=== PATIENT | female | born 1950 | race Caucasian/White ===

== ENCOUNTER 2017-03-26 10:50 | Day surgery (SDC) | payer MEDICARE ==
[2017-03-26] MEDS ORDERED: Lactated Ringers 1,000 ML IV SCH (11:00)
[2017-03-26] MEDS ORDERED: fentaNYL 100 MCG/2 ML SDV ONE (12:08)
[2017-03-26] MEDS ORDERED: Propofol 200 MG/20 ML SDV ONE (12:08)
[2017-03-26] MEDS ORDERED: Midazolam 1 MG/ML 2 ML SDV ONE (12:08)
[2017-03-26] MEDS ORDERED: Ampicillin 2 GM in Sodium Chloride 0.9% 100 ML IV ONE (12:15)
[2017-03-26 13:52] VITALS: BP 134/100
--- NOTE | 2017-03-27 08:00 | OR ---
DATE OF PROCEDURE: 03/26/2017 PREOPERATIVE DIAGNOSIS: Colon cancer screening. POSTOPERATIVE DIAGNOSIS: Unremarkable colonoscopy. PROCEDURE: Colonoscopy to the cecum. ANESTHESIA: IV anesthesia with monitored anesthesia care. INDICATION: This 66-year-old white female was referred for a colonoscopy for colon cancer screening. She says her last colonoscopic exam was done about 10 years ago in [place], [place]. I counseled her for a colonoscopy with possible biopsy and/or polypectomy including risks and alternatives and she gave her informed consent to proceed. DESCRIPTION OF PROCEDURE: The patient was placed in the left lateral decubitus position. IV anesthesia was administered by the Anesthesia Service. Time-out was held. A rectal exam was performed, which was unremarkable. The flexible video Olympus colonoscope was introduced through her anus, up her rectum, and out her colon all the way to the cecum. Once the cecum was reached, the scope was slowly withdrawn examining the mucosa throughout. No mucosal abnormalities were noted. The scope was retroflexed in the rectum with the distal rectum appearing unremarkable. The scope was straightened and removed. She tolerated the procedure well. Jaime Jimenez MD /[id number]
== END 2017-03-26 14:05 | disposition home or self-care (01) ==
LOC: JP.SDS 10:50
PROVIDERS: ATTEND Surgery
DX: Z12.11 Encounter for screening for malignant neoplasm of colon (principal); K21.9 Gastro-esophageal reflux disease without esophagitis
CPT/HCPCS: G0121; J0290; J2250; J2704; J3010; J7030; J7120

== ENCOUNTER 2017-12-04 08:26 | Day surgery (SDC) | payer MEDICARE ==
[2017-12-04] MEDS ORDERED: Sodium Chloride 0.9% 1,000 ML IV SCH (09:00)
[2017-12-04] MEDS ORDERED: Midazolam 1 MG/ML 2 ML SDV ONE (10:07)
[2017-12-04] MEDS ORDERED: fentaNYL 100 MCG/2 ML SDV ONE (10:07)
[2017-12-04] MEDS ORDERED: Propofol 200 MG/20 ML SDV ONE (10:07)
[2017-12-04] MEDS ORDERED: ceFAZolin 2 GM in Premix Bag 1 BAG IV ONE (10:15)
[2017-12-04 11:31] VITALS: BP 159/85
--- NOTE | 2017-12-04 11:36 | OR ---
DATE OF PROCEDURE: 12/04/2017 PROCEDURE: EGD. FINDINGS: Very mild inflammation at the GE junction, consistent with reflux disease. PREOPERATIVE DIAGNOSIS: Epigastric pain/dysphagia. POSTOPERATIVE DIAGNOSIS: Epigastric pain/dysphagia. RISKS: Risks, benefits, alternatives, and limitations including, but not limited to infection, bleeding, and perforation were explained to the patient, who wished to proceed. PROCEDURE IN DETAIL: The patient was placed in left lateral decubitus position. Digital rectal exam was performed without abnormality. The scope was introduced and advanced atraumatically to the second part of the duodenum. The scope was brought back and retroflexed. No hiatal hernia. At the GE junction, there was very mild inflammation consistent with reflux disease. This was biopsied using cold biopsy forceps. The esophagus was normal. The patient had proximal esophageal dysphagia. This area was inspected twice, and there was no evidence of abnormality. The vocal cords were all functioning well. The patient tolerated the procedure well. Lawrence Gandhi MD /[id number]
== END 2017-12-04 11:33 | disposition home or self-care (01) ==
LOC: JP.SDS 08:26
PROVIDERS: ATTEND Surgery
DX: K29.50 Unspecified chronic gastritis without bleeding (principal); K21.0 Gastro-esophageal reflux disease with esophagitis; I10 Essential (primary) hypertension; F32.9 Major depressive disorder, single episode, unspecified
CPT/HCPCS: 43239; 88305; J0690; J2250; J2704; J3010; J7040; J7030

== ENCOUNTER 2020-07-03 21:23 | Emergency (ER) | payer MEDICARE ==
[2020-07-03 21:36] VITALS: BP 136/92; PULSE 109
[2020-07-03] MEDS ORDERED: Diphtheria,Pertussis(Acell),Tetanus Vaccine 0.5 ML SDV IM ONE (21:41)
[2020-07-03] MEDS ORDERED: Bacitracin Oint 1 GM U/D Packet TOP ONE (21:41)
[2020-07-03] MEDS ORDERED: Amoxicillin/Clavulanate K 875-125 MG Tab PO ONE (21:44)
--- NOTE | 2020-07-03 22:03 | EDM.PDOC ---
ED HPI GENERAL MEDICAL PROBLEM - General Chief Complaint: Laceration Stated Complaint: DOG BITE TO RT HAND Time Seen by Provider: 07/03/20 21:45 Source of Information: Reports: Patient, Old Records, RN History Limitations: Reports: No Limitations - History of Present Illness INITIAL COMMENTS - FREE TEXT/NARRATIVE: 69 yo female presents with a laceration to the R hand resulting from catching it on her dog's tooth. Last tetanus 6 yrs ago. No other injuries. Onset: Today, Sudden Onset Date: 07/03/20 Duration: Minutes: Location: Reports: Upper Extremity, Right Quality: Reports: Dull Severity: Mild Improves with: Reports: None Worsens with: Reports: None Context: Reports: Trauma Associated Symptoms: Reports: No Other Symptoms Treatments PICKER / PACKER: Reports: Other (see below) (none) Right Hand Pain Score (Numeric/FACES): 6 - Related Data Allergies Allergy/AdvReac Type Severity Reaction Status Date / Time No Known Allergies Allergy Verified 09/30/18 22:22 Home Meds: Home Meds hydrOXYzine pamoate [Hydroxyzine Pamoate] 1 - 2 tab PO QID PRN 10/24/17 [History] Cholecalciferol (Vitamin D3) [Vitamin D3] 4,000 units PO DAILY 12/02/17 [History] Albuterol [Ventolin HFA] 1 - 2 mg PO ASDIRECTED 09/30/18 [History] Past Medical History HEENT History: Reports: Impaired Vision Other HEENT History: glasses Cardiovascular History: Reports: High Cholesterol, SOB on Exertion, Syncope Respiratory History: Reports: Other (See Below) Other Respiratory History: chronic cough Gastrointestinal History: Reports: GERD Genitourinary History: Reports: None 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: Musculoskeletal History: Reports: Fibromyalgia, Other (See Below) Other Musculoskeletal History: POLYMYALGIA; bursitis Neurological History: Reports: None Psychiatric History: Reports: Depression Endocrine/Metabolic History: Reports: None Hematologic History: Reports: None Immunologic History: Reports: None Oncologic (Cancer) History: Reports: Basal Cell Carcinoma Dermatologic History: Reports: None - Infectious Disease History Infectious Disease History: Reports: Chicken Pox - Past Surgical History Head Surgeries/Procedures: Reports: None HEENT Surgical History: Reports: None Cardiovascular Surgical History: Reports: None Respiratory Surgical History: Reports: None Oncologic Surgical History: Reports: Other (See Below) Other Oncologic Surgeries/Procedures: RIGHT UNDER ARM Social & Family History - Family History Family Medical History: Noncontributory Oncologic: Reports: Breast, Lymphoma, Prostate - Tobacco Use Smoking Status *Q: Never Smoker - Caffeine Use Caffeine Use: Reports: Coffee - Recreational Drug Use Recreational Drug Use: No ED ROS GENERAL - Review of Systems Review Of Systems: See Below Constitutional: Reports: No Symptoms Musculoskeletal: Reports: No Symptoms Skin: Reports: Wound (R hand lac) Neurological: Reports: No Symptoms ED EXAM, SKIN/RASH Exam: See Below Exam Limited By: No Limitations General Appearance: Alert, WD/WN, No Apparent Distress Extremities: Other (laceration of R hand, ulnar side) Neurological: Alert, Oriented, CN II-XII Intact, Normal Cognition, No Motor/Sensory Deficits Psychiatric: Normal Affect, Normal Mood Skin: Warm, Dry, Normal Color, No Rash, Wound/Incision (laceration ulnar aspect of R hand) Location, Skin: Upper Extremity, Right Characteristics: Linear Associated features: Tenderness. No: Warmth, Swelling, Induration, Lymphangitis, Inflammation ED SKIN PROCEDURES - Laceration/Wound Repair Right Lateral Hand Appearance: Subcutaneous, Linear Distal NVT: Neuro & Vascular Intact, No Tendon Injury Anesthetic Type: Local Local Anesthesia - Lidocaine (Xylocaine): 1% with EPI Local Anesthetic Volume: 3cc Skin Prep: Saline Saline Irrigation (cc's): 45 Exploration/Debridement/Repair: Wound Explored Closed with: Sutures Lac/Wound length In cm: 2.3 Suture Type: Prolene, Interrupted, Simple Suture Size: 5-0 # of Sutures: 5 Drain Placement: No Sterile Dressing Applied: Nurse Tetanus Status Addressed: Yes Complications: No Course - Vital Signs Last Recorded V/S: Last Vital Signs Temp 36.4 C 07/03/20 21:39 Pulse 109 H 07/03/20 21:39 Resp 16 07/03/20 21:39 BP 136/92 H 07/03/20 21:39 Pulse Ox 97 07/03/20 21:39 - Orders/Labs/Meds Orders: Active Orders 24 hr Category Date Time Status Vaccines to be Administered [RC] PER UNIT ROUTINE Care 07/03/20 21:41 Active Meds: Medications Discontinued Medications Generic Name Dose Route Start Last Admin Trade Name Freq PRN Reason Stop Dose Admin Amoxicillin/Clavulanate Potassium 1 tab 07/03/20 21:44 Augmentin 875 Mg/125 Mg PO 07/03/20 21:45 ONETIME ONE Bacitracin 1 dose 07/03/20 21:41 Bacitracin Oint 1 Gm TOP 07/03/20 21:42 ONETIME ONE Diphtheria/Tetanus/Acell Pertussis 0.5 ml 07/03/20 21:41 Adacel IM 07/03/20 21:42 .ONCE ONE Departure - Departure Time of Disposition: 22:10 Disposition: Home, Self-Care 01 Condition: Good Clinical Impression: Laceration of right hand Qualifiers: Encounter type: initial encounter Foreign body presence: without foreign body Qualified Code(s): S61.411A - Laceration without foreign body of right hand, initial encounter - Discharge Information *PRESCRIPTION DRUG MONITORING PROGRAM REVIEWED*: No *COPY OF PRESCRIPTION DRUG MONITORING REPORT IN PATIENT ITA: No Instructions: Laceration Care, Adult, [id number] Referrals: Wilda Martinez PA-C [Primary Care Provider] - Additional Instructions: Take Augmentin every 12 hrs until gone. Clean wound twice daily with soap and water, dry, and apply antibiotic ointment. Recheck for signs of infection. Acetaminophen for pain relief as needed. Keep wound clean for 3 days at least. Stitches out in 9-10 days. Sepsis Event Note (ED) - Evaluation Sepsis Screening Result: No Definite Risk - Focused Exam Vital Signs: Vital Signs Temp Pulse Resp BP Pulse Ox 07/03/20 21:39 36.4 C 109 H 16 136/92 H 97 07/03/20 21:34 36.4 C 109 H 16 136/92 H 97 - My Orders Last 24 Hours: My Active Orders 07/03/20 21:41 Vaccines to be Administered [RC] PER UNIT ROUTINE - Assessment/Plan Last 24 Hours: My Active Orders 07/03/20 21:41 Vaccines to be Administered [RC] PER UNIT ROUTINE
== END 2020-07-03 22:12 | disposition home or self-care (01) ==
LOC: JP.ED 21:23
DX: S61.411A Laceration without foreign body of right hand, initial encounter (principal); Z23 Encounter for immunization; W54.1XXA Struck by dog, initial encounter
CPT/HCPCS: 12001; 90471; 90715; 99282; A9270

== ENCOUNTER 2021-09-17 09:22 | Emergency (ER) | payer MEDICARE ==
[2021-09-17] MEDS ORDERED: Carvedilol 3.125 MG Tab PO ONE (10:16)
[2021-09-17 10:26] VITALS: PULSE 117
--- NOTE | 2021-09-17 10:26 | EDM.PDOC ---
ED HPI GENERAL MEDICAL PROBLEM - General Chief Complaint: Cardiovascular Problem Stated Complaint: CHEST PAIN/SNAPPED TENDON R FOOT Time Seen by Provider: 09/17/21 10:10 Source of Information: Reports: Patient, Provider, RN History Limitations: Reports: No Limitations - History of Present Illness INITIAL COMMENTS - FREE TEXT/NARRATIVE: 71 yo female s/p R achilles repair after rupture 11 d ago was sent to the ER today to R/O PE after she experienced chest pain and R calf pain transiently in the night last night. She has no sx's currently. Her chest pain resolved after she took some antacids. She has not had her Coreg yet today. With last night's chest pain she did not experience any SOB, nausea or diaphoresis. Onset: Sudden Onset Date: 09/17/21 Duration: Minutes: Location: Reports: Chest, Lower Extremity, Right Quality: Reports: Burning Severity: Mild Improves with: Reports: Medication (antacids) Worsens with: Reports: Other (unsure) Context: Reports: Other (See HPI) Associated Symptoms: Reports: No Other Symptoms. 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: Other Medication(s) (antacids last night) - Related Data Allergies Allergy/AdvReac Type Severity Reaction Status Date / Time No Known Allergies Allergy Verified 09/17/21 09:49 Home Meds: Home Meds hydrOXYzine pamoate [Hydroxyzine Pamoate] 1 - 2 tab PO QID PRN 10/24/17 [History] Cholecalciferol (Vitamin D3) [Vitamin D3] 4,000 units PO DAILY 12/02/17 [History] Albuterol [Ventolin HFA] 1 - 2 mg PO ASDIRECTED 09/30/18 [History] ALPRAZolam [Xanax] 0.25 mg PO TID PRN 08/09/21 [History] ARIPiprazole [Abilify] 5 mg PO DAILY 08/09/21 [History] Cyanocobalamin (Vitamin B-12) [Cyanocobalamin Injection] 1,000 mcg IJ Q14D 08/09/21 [History] DULoxetine [Cymbalta] 60 mg PO BID 08/09/21 [History] Fish Oil/DHA/EPA [Fish Oil 1,200 MG] 1 each PO DAILY 08/09/21 [History] Omeprazole 40 mg PO ACBREAKFAST 08/09/21 [History] Triamcinolone Acetonide [Triamcinolone Acetonide 0.1% Crm] 1 applic TOP BID 08/09/21 [History] atorvaSTATin [Lipitor] 10 mg PO BEDTIME 08/09/21 [History] carvediloL [Carvedilol] 6.25 mg PO BID 08/09/21 [History] estradioL [Estradiol] 0.5 mg PO DAILY 08/09/21 [History] lisinopriL [Lisinopril] 10 mg PO DAILY 08/09/21 [History] predniSONE [Prednisone] 50 mg PO ASDIRECTED 08/09/21 [History] Past Medical History HEENT History: Reports: Impaired Vision Other HEENT History: glasses Cardiovascular History: Reports: High Cholesterol, SOB on Exertion, Syncope Respiratory History: Reports: Other (See Below) Other Respiratory History: chronic cough Gastrointestinal History: Reports: GERD Genitourinary History: Reports: None 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: Musculoskeletal History: Reports: Fibromyalgia, Other (See Below) Other Musculoskeletal History: POLYMYALGIA; bursitis Neurological History: Reports: None Psychiatric History: Reports: Depression Endocrine/Metabolic History: Reports: None Hematologic History: Reports: None Immunologic History: Reports: None Oncologic (Cancer) History: Reports: Basal Cell Carcinoma Dermatologic History: Reports: None - Infectious Disease History Infectious Disease History: Reports: Chicken Pox - Past Surgical History Head Surgeries/Procedures: Reports: None HEENT Surgical History: Reports: Cataract Surgery Cardiovascular Surgical History: Reports: None Respiratory Surgical History: Reports: None GI Surgical History: Reports: Colonoscopy Female Surgical History: Reports: Hysterectomy Musculoskeletal Surgical History: Reports: Knee Replacement, Other (See Below) Other Musculoskeletal Surgeries/Procedures:: right knee 09/24/16 back surgery L4 and 5 Oncologic Surgical History: Reports: Other (See Below) Other Oncologic Surgeries/Procedures: RIGHT UNDER ARM Dermatological Surgical History: Reports: Other (See Below) Social & Family History - Family History Family Medical History: No Pertinent Family History Oncologic: Reports: Breast, Lymphoma, Prostate - Tobacco Use Tobacco Use Status *Q: Never Tobacco User Second Hand Smoke Exposure: No - Caffeine Use Caffeine Use: Reports: Coffee Other Caffeine Use: 2 cups coffee per morning - Alcohol Use Days Per Week of Alcohol Use: 7 Number of Drinks Per Day: 2 Total Drinks Per Week: 14 - Recreational Drug Use Recreational Drug Use: No ED ROS GENERAL - Review of Systems Review Of Systems: See Below Constitutional: Reports: No Symptoms HEENT: Reports: No Symptoms Respiratory: Reports: No Symptoms Cardiovascular: Reports: Chest Pain. Denies: Dyspnea on Exertion, Lightheadedness, Palpitations GI/Abdominal: Denies: Nausea : Reports: No Symptoms Musculoskeletal: Reports: Leg Pain (R calf) Skin: Reports: No Symptoms Neurological: Reports: No Symptoms ED EXAM, GENERAL - Physical Exam Exam: See Below Exam Limited By: No Limitations General Appearance: Alert, WD/WN, No Apparent Distress Eye Exam: Bilateral Eye: Normal Inspection Ears: Normal External Exam, Normal Canal, Hearing Grossly Normal, Normal TMs, Other (bilat hearing aids) Ear Exam: Bilateral Ear: Auricle Normal, Canal Normal, TM normal Nose: Normal Inspection, No Blood Throat/Mouth: Normal Inspection, Normal Lips, Normal Oropharynx, Normal Voice, No Airway Compromise Head: Atraumatic, Normocephalic Neck: Normal Inspection Respiratory/Chest: No Respiratory Distress, Lungs Clear, Normal Breath Sounds, No Accessory Muscle Use. No: Chest Non-Tender Cardiovascular: Regular Rate, Rhythm, No Edema, Tachycardia. No: Irregularly Irregular Extremities: Normal Inspection, Other (Has a walking boot on the R leg/foot) Neurological: Alert, Oriented, CN II-XII Intact, Normal Cognition, No Motor/Sensory Deficits Psychiatric: Normal Affect, Normal Mood Skin Exam: Warm, Dry, Intact, Normal Color, No Rash Course - Vital Signs Last Recorded V/S: Last Vital Signs Temp 36.6 C 09/17/21 09:57 Pulse 117 H 09/17/21 10:25 Resp 16 09/17/21 13:27 BP 136/93 H 09/17/21 13:27 Pulse Ox 97 09/17/21 13:27 - Orders/Labs/Meds Orders: Active Orders 24 hr Category Date Time Status Cardiac Monitoring [RC] .As Directed Care 09/17/21 10:14 Active Ang Chest [CT] Stat Exams 09/17/21 13:01 Ordered Iopamidol [Isovue-370 (76%)] Med 09/17/21 13:30 Active 100 ml IV . DIRECTED Sodium Chloride 0.9% [Saline Flush] Med 09/17/21 13:03 Active 10 ml FLUSH ASDIRECTED PRN Sodium Chloride 0.9% [Saline Flush] Med 09/17/21 13:23 Active 10 ml FLUSH ONETIME PRN Saline Lock Insert [OM.PC] Routine Oth 09/17/21 13:03 Ordered Medication Orders Iopamidol (Iopamidol 755 Mg/Ml 100 Ml Bottle) 100 ml IV . DIRECTED ISMA Last Admin: 09/17/21 13:49 Dose: 100 ml Documented by: MELANIE Sodium Chloride (Sodium Chloride 0.9% 10 Ml Syringe) 10 ml FLUSH ASDIRECTED PRN PRN Reason: Keep Vein Open Last Admin: 09/17/21 13:25 Dose: 10 ml Documented by: MARQUIS Sodium Chloride (Sodium Chloride 0.9% 10 Ml Syringe) 10 ml FLUSH ONETIME PRN PRN Reason: PER RADIOLOGY PROTOCOL Last Admin: 09/17/21 13:49 Dose: 10 ml Documented by: MELANIE Labs: Laboratory Tests 09/17/21 09/17/21 09/17/21 Range/Units 09:44 09:50 09:50 D-Dimer, Quantitative 1146.76 H (0.0-500.0) ng/mL Creatinine 1.0 (0.6-1.0) mg/dL Est Cr Clr Drug Dosing TNP Estimated GFR (MDRD) 55 L (>60) Troponin I < 0.017 (0.000-0.056) ng/mL Meds: Medications Generic Name Dose Route Start Last Admin Trade Name Freq PRN Reason Stop Dose Admin Iopamidol 100 ml 09/17/21 13:30 09/17/21 13:49 Iopamidol 755 Mg/Ml 100 Ml Bottle IV 100 ml . DIRECTED ISMA Administration Sodium Chloride 10 ml 09/17/21 13:03 09/17/21 13:25 Sodium Chloride 0.9% 10 Ml Syringe FLUSH 10 ml ASDIRECTED PRN Administration Keep Vein Open Sodium Chloride 10 ml 09/17/21 13:23 09/17/21 13:49 Sodium Chloride 0.9% 10 Ml Syringe FLUSH 10 ml ONETIME PRN Administration PER RADIOLOGY PROTOCOL Discontinued Medications Generic Name Dose Route Start Last Admin Trade Name Freq PRN Reason Stop Dose Admin Carvedilol 6.25 mg 09/17/21 10:16 09/17/21 10:25 Carvedilol 3.125 Mg Tab PO 09/17/21 10:17 6.25 mg ONETIME ONE Administration Sodium Chloride 100 mls @ 3 mls/sec 09/17/21 13:23 09/17/21 13:49 Normal Saline IV 09/17/21 13:24 3 mls/sec ONETIME ONE Administration - Radiology Interpretation Free Text/Narrative:: venous doppler R leg-neg for DVT Angio Chest-neg CT Results Date: 09/17/21 CT Results Time: 14:07 Departure - Departure Time of Disposition: 14:07 Disposition: Home, Self-Care 01 Condition: Good Clinical Impression: Calf pain Qualifiers: Laterality: right Qualified Code(s): M79.661 - Pain in right lower leg Clinical Impression: (Ruled Out): Post-operative complication Referrals: Wilda Martinez PA-C [Primary Care Provider] - Forms: ED Department Discharge Additional Instructions: Return to the [address] to get your cast from your vehicle and equipment cleaner. Return as needed. Sepsis Event Note (ED) - Evaluation Sepsis Screening Result: No Definite Risk - Focused Exam Vital Signs: Vital Signs Temp Pulse Pulse Resp BP BP Pulse Ox 09/17/21 13:27 16 136/93 H 97 09/17/21 10:25 117 H 141/92 H 09/17/21 09:57 36.6 C 118 H 20 133/101 H 96 - My Orders Last 24 Hours: My Active Orders 09/17/21 10:14 Cardiac Monitoring [RC] .As Directed 09/17/21 13:01 Ang Chest [CT] Stat 09/17/21 13:03 Sodium Chloride 0.9% [Saline Flush] 10 ml FLUSH ASDIRECTED PRN Saline Lock Insert [OM.PC] Routine 09/17/21 13:23 Sodium Chloride 0.9% [Saline Flush] 10 ml FLUSH ONETIME PRN 09/17/21 13:30 Iopamidol [Isovue-370 (76%)] 100 ml IV . DIRECTED - Assessment/Plan Last 24 Hours: My Active Orders 09/17/21 10:14 Cardiac Monitoring [RC] .As Directed 09/17/21 13:01 Ang Chest [CT] Stat 09/17/21 13:03 Sodium Chloride 0.9% [Saline Flush] 10 ml FLUSH ASDIRECTED PRN Saline Lock Insert [OM.PC] Routine 09/17/21 13:23 Sodium Chloride 0.9% [Saline Flush] 10 ml FLUSH ONETIME PRN 09/17/21 13:30 Iopamidol [Isovue-370 (76%)] 100 ml IV . DIRECTED
--- NOTE | 2021-09-17 12:48 | US ---
VL Duplex Lwr Ext Veins Ltd Rt INDICATION: recent pain in calf, post surgical, elevated d-dim FINDINGS: Ultrasound examination of the lower extremity using Doppler and compressive technique demonstrates that the common femoral, femoral, and popliteal veins are patent, and negative for thrombus. The calf veins were segmentally visualized and are negative where seen. IMPRESSION: Negative for deep venous thrombosis.
[2021-09-17] MEDS ORDERED: Sodium Chloride 0.9% 10 ML Syringe FLUSH PRN ×2 (13:03→13:23)
[2021-09-17] MEDS ORDERED: Sodium Chloride 0.9% 100 ML IV ONE (13:23)
[2021-09-17 13:28] VITALS: BP 136/93
[2021-09-17] MEDS ORDERED: Iopamidol 755 Mg/ML 100 ML Bottle IV SCH (13:30)
--- NOTE | 2021-09-17 14:12 | CT ---
Ang Chest CLINICAL HISTORY: Elevated d-dimer, SOB, recent surgery TECHNIQUE: Thin section axial contiguous tomographic sections were taken through the chest after bolus IV iodinated contrast administration. Coronal and sagittal images were reconstructed. Auto dosage reduction and iterative reconstruction techniques employed. FINDINGS: There is some patchy pleural-parenchymal scarring. There is some minimal groundglass like density in the dependent portion lungs which is felt to represent some minimal tendon atelectasis or edema. No infiltrates or masses are identified. There are no pleural effusions. No mediastinal mass or lymphadenopathy is identified. The aorta has a normal contour. Pulmonary arteries are free of filling defects or vessel cut off. Scans in the upper abdomen show no mass or adenopathy Impression: No evidence of pulmonary embolus Scattered pleural parenchymal scarring No mass, adenopathy
== END 2021-09-17 14:15 | disposition home or self-care (01) ==
LOC: JP.ED 09:22
DX: M79.661 Pain in right lower leg (principal); E78.00 Pure hypercholesterolemia, unspecified; K21.9 Gastro-esophageal reflux disease without esophagitis; Z79.899 Other long term (current) drug therapy
CPT/HCPCS: 36415; 71275; 82565; 84484; 85379; 93971; 99285; A9270; Q9967

== ENCOUNTER 2022-04-19 03:39 | Observation (INO) | payer MEDICARE ==
[2022-04-19] MEDS ORDERED: HYDROmorphone 1 MG/ML Syringe IVPUSH ONE (03:49)
[2022-04-19] MEDS ORDERED: Ondansetron 4 MG/2 ML SDV IVPUSH ONE (03:49)
[2022-04-19] MEDS ORDERED: Sodium Chloride 0.9% 10 ML Syringe FLUSH PRN (03:49)
[2022-04-19] MEDS ORDERED: Methocarbamol 500 MG Tab PO ONE (04:01)
[2022-04-19 04:41] LABS: CORONAVIRUS COVID-19 NAA NEGATIVE (NEGATIVE)
[2022-04-19] MEDS ORDERED: Acetaminophen 325 MG Tab PO PRN (06:27)
[2022-04-19] MEDS ORDERED: Albuterol 0.083% 2.5 MG/3 ML Neb Soln NEB PRN (06:27)
[2022-04-19] MEDS ORDERED: Ondansetron 4 MG Tab.DIS PO PRN (06:27)
[2022-04-19] MEDS ORDERED: Docusate Sodium 100 MG Cap PO PRN (06:27)
[2022-04-19] MEDS ORDERED: Albuterol/Ipratropium 3.0-0.5 MG/3 ML Neb Soln NEB PRN (06:27)
[2022-04-19] MEDS ORDERED: ALPRAZolam 0.25 MG Tab PO PRN (06:27)
[2022-04-19] MEDS ORDERED: Bisacodyl 5 MG Tab PO PRN (06:27)
[2022-04-19] MEDS ORDERED: Morphine 2 MG/ML SYRINGE IVPUSH PRN (06:27)
[2022-04-19] MEDS ORDERED: Ondansetron 4 MG/2 ML SDV IV PRN (06:27)
[2022-04-19] MEDS ORDERED: Pantoprazole 40 MG Tab.CR PO SCH (07:30)
[2022-04-19] MEDS: Acetaminophen/HYDROcodone 325-5 MG Tab PO PRN ×4 (07:51→21:56)
[2022-04-19] MEDS: Lisinopril 10 MG Tab PO SCH (08:37)
[2022-04-19] MEDS: DULoxetine 30 MG Cap PO SCH ×2 (08:37→21:37)
[2022-04-19] MEDS: Enoxaparin 40 MG/0.4 ML Syringe SUBCUT SCH (08:37)
[2022-04-19] MEDS: Carvedilol 3.125 MG Tab PO SCH ×2 (08:40→21:37)
[2022-04-19] MEDS ORDERED: ARIPiprazole 10 MG Tab PO SCH (09:00)
[2022-04-19] MEDS ORDERED: Estradiol 0.5 MG Tab PO SCH (09:00)
[2022-04-19] MEDS ORDERED: atorvaSTATin 10 MG Tab PO SCH (21:00)
[2022-04-19] MEDS: Carvedilol 12.5 MG Tab**OWN MED PO SCH (21:34)
[2022-04-19] MEDS: DULOXETINE 60 MG PO SCH (21:34)
[2022-04-20] MEDS: Acetaminophen/HYDROcodone 325-5 MG Tab PO PRN ×6 (02:04→23:21)
[2022-04-20 05:25] LABS: ESTIMATED GFR > 60 (>60)
[2022-04-20] MEDS: OMEPRAZOLE 40MG CAP (PTOM) PO SCH (08:00)
[2022-04-20] MEDS: Carvedilol 12.5 MG Tab**OWN MED PO SCH (08:01)
[2022-04-20] MEDS: Enoxaparin 40 MG/0.4 ML Syringe SUBCUT SCH (08:02)
[2022-04-20] MEDS: ESTRADIOL 0.5 MG PO SCH (08:02)
[2022-04-20] MEDS: Lisinopril 10 MG Tab PO SCH (08:08)
[2022-04-20] MEDS: DULOXETINE 60 MG PO SCH ×2 (08:08→21:26)
[2022-04-20] MEDS: ARIPIPRAZOLE 5 MG PO SCH (08:09)
[2022-04-20] MEDS ORDERED: Carvedilol 12.5 MG Tab**OWN MED PO SCH (09:00)
[2022-04-20] MEDS ORDERED: Pneumococcal Polyvalent-23 Vaccine 0.5 ML SDV IM ONE (09:00)
[2022-04-20] MEDS ORDERED: atorvaSTATin 20 MG Tab PO SCH (21:00)
[2022-04-20] MEDS: CARVEDILOL 12.5 MG PO SCH (21:26)
[2022-04-20] MEDS ORDERED: Hydrocortisone 1% Crm 30 GM Tube TOP PRN ×2 (21:37→21:47)
[2022-04-20] MEDS ORDERED: diphenhydrAMINE 25 MG Cap PO ONE (22:17)
[2022-04-21] MEDS ORDERED: Acetaminophen 325 MG Tab PO PRN (02:18)
[2022-04-21] MEDS: Acetaminophen/HYDROcodone 325-5 MG Tab PO PRN ×3 (03:23→12:27)
[2022-04-21] MEDS: Enoxaparin 40 MG/0.4 ML Syringe SUBCUT SCH (08:16)
[2022-04-21] MEDS: ESTRADIOL 0.5 MG PO SCH (08:17)
[2022-04-21] MEDS: DULOXETINE 60 MG PO SCH (08:17)
[2022-04-21] MEDS: OMEPRAZOLE 40MG CAP (PTOM) PO SCH (08:17)
[2022-04-21] MEDS: ARIPIPRAZOLE 5 MG PO SCH (08:18)
[2022-04-21] MEDS: CARVEDILOL 12.5 MG PO SCH (08:18)
[2022-04-21 08:19] VITALS: BP 134/94
[2022-04-21 08:20] VITALS: PULSE 81
[2022-04-21] MEDS ORDERED: predniSONE 40 MG, predniSONE 10 MG PO SCH ×2 (09:00)
[2022-04-21] MEDS ORDERED: predniSONE 10 MG Tab PO SCH (09:00)
[2022-04-21] MEDS ORDERED: Lisinopril 20 MG Tab PO SCH (09:00)
== END 2022-04-21 13:30 | disposition home or self-care (01) ==
LOC: JP.ED 03:39 → INTOOBSV 05:39 → JP.MS 05:39
PROVIDERS: ADMIT Hospitalist; ATTEND Hospitalist
DX: S32.010A Wedge compression fracture of first lumbar vertebra, initial encounter for closed fracture (principal); M51.36 Other intervertebral disc degeneration, lumbar region; E78.00 Pure hypercholesterolemia, unspecified; J44.9 Chronic obstructive pulmonary disease, unspecified; K21.9 Gastro-esophageal reflux disease without esophagitis; M79.7 Fibromyalgia; F41.9 Anxiety disorder, unspecified; F32.A Depression, unspecified; I25.10 Atherosclerotic heart disease of native coronary artery without angina pectoris; I25.83 Coronary atherosclerosis due to lipid rich plaque; Z79.52 Long term (current) use of systemic steroids; Z79.899 Other long term (current) drug therapy; Z87.440 Personal history of urinary (tract) infections; Z20.822 Contact with and (suspected) exposure to COVID-19; W01.0XXA Fall on same level from slipping, tripping and stumbling without subsequent striking against object, initial encounter; Y93.02 Activity, running; Y92.009 Unspecified place in unspecified non-institutional (private) residence as the place of occurrence of the external cause
CPT/HCPCS: 0241U; 36415; 72131; 80053; 81001; 85025; 90732; 96372; 96374; 96375; 97110; 97116; 97162; 97165; 99217; 99219; 99225; 99284; 99285; A9270; G0009; G0378; J1170; J1650; J2270; J2405; J7512

== ENCOUNTER 2023-03-04 16:08 | Emergency (ER) | payer MEDICARE ==
[2023-03-04 17:22] VITALS: BP 152/82; PULSE 89
[2023-03-04] MEDS ORDERED: Cyclobenzaprine 10 MG Tab PO ONE (18:06)
[2023-03-04] MEDS ORDERED: HYDROmorphone 1 MG/ML Syringe IM ONE (18:06)
[2023-03-04] MEDS ORDERED: Methocarbamol 500 MG Tab PO ONE (18:07)
== END 2023-03-04 19:29 | disposition home or self-care (01) ==
LOC: JP.ED 16:08
DX: G89.18 Other acute postprocedural pain (principal); E78.00 Pure hypercholesterolemia, unspecified; J44.9 Chronic obstructive pulmonary disease, unspecified; K21.9 Gastro-esophageal reflux disease without esophagitis; Z79.899 Other long term (current) drug therapy; Z86.16 Personal history of COVID-19
CPT/HCPCS: 96372; 99283; A9270; J1170

== ENCOUNTER 2023-03-16 21:30 | Emergency (ER) | payer MEDICARE ==
[2023-03-16 21:33] VITALS: BP 134/72; PULSE 81
[2023-03-16] MEDS ORDERED: HYDROmorphone 0.5 MG/0.5 ML Syringe IM ONE (21:50)
== END 2023-03-17 00:03 | disposition home or self-care (01) ==
LOC: EDBD 21:30 → MERGE 21:30 → JP.ED 21:30
DX: G89.18 Other acute postprocedural pain (principal); M54.50 Low back pain, unspecified; Z91.048 Other nonmedicinal substance allergy status
CPT/HCPCS: 96372; 99283; J1170

== ENCOUNTER 2023-05-23 05:54 | Emergency (ER) | payer MEDICARE ==
[2023-05-23 06:10] VITALS: BP 131/92; PULSE 83
[2023-05-23] MEDS ORDERED: Sodium Chloride 0.9% 10 ML Syringe FLUSH PRN ×2 (07:06→08:26)
[2023-05-23] MEDS ORDERED: fentaNYL 100 MCG/2 ML SDV IVPUSH ONE (07:08)
[2023-05-23] MEDS ORDERED: Ondansetron 4 MG/2 ML SDV IVPUSH ONE (07:08)
[2023-05-23] MEDS ORDERED: Sodium Chloride 0.9% 1,000 ML IV SCH (07:15)
[2023-05-23 07:37] LABS: BASOPHILS ABSOLUTE AUTO 0.06 K/uL (0.00-0.10); BASOPHILS PERCENT AUTO 0.9 % (0.1-1.3); EOSINOPHILS ABSOLUTE AUTO 0.53 K/uL (0.00-0.40); EOSINOPHILS PERCENT AUTO 7.9 % (0.0-5.4); HEMATOCRIT 32.9 % (34.3-46.0); IMMATURE GRAN PERCENT AUTO 0.1 % (0.0-0.7); LYMPHOCYTES ABSOLUTE AUTO 2.12 K/uL (0.8-3.3); LYMPHOCYTES PERCENT AUTO 31.7 % (11.4-47.7); MEAN CORPUSCULAR HEMOGLOBIN 26.3 pg (31.6-35.5); MEAN CORPUSCULAR HGB CONC 30.4 g/dL (31.6-35.5); MEAN CORPUSCULAR VOLUME 86.6 fL (81.4-99.0); MONOCYTES ABSOLUTE AUTO 0.62 K/uL (0.20-0.90); MONOCYTES PERCENT AUTO 9.3 % (3.3-12.6); NEUTROPHILS ABSOLUTE AUTO 3.35 K/uL (1.0-7.6); NEUTROPHILS PERCENT AUTO 50.1 % (40.0-78.1); PLATELET COUNT,PLT 233 K/uL (130-375); WHITE BLOOD CELL COUNT,WBC 6.7 K/uL (3.2-11.0)
[2023-05-23 07:38] LABS: IMMATURE GRAN ABSOLUTE AUTO 0.01 K/uL (0.00-0.23)
[2023-05-23 07:50] LABS: APPEARANCE,URINE CLOUDY (CLEAR); BILIRUBIN,URINE NEGATIVE (NEGATIVE); COLOR,URINE YELLOW (YELLOW); GLUCOSE,URINE NEGATIVE (NEGATIVE); KETONES,URINE NEGATIVE (NEGATIVE); LEUKOCYTE ESTERASE,URINE NEGATIVE (NEGATIVE); NITRITE,URINE NEGATIVE (NEGATIVE); OCCULT BLOOD,URINE NEGATIVE (NEGATIVE); PROTEIN,URINE NEGATIVE (NEGATIVE); UROBILINOGEN,URINE 0.2 EU/dL (0.2-1.0)
[2023-05-23 07:57] LABS: ALANINE AMINOTRANSFERASE,ALT 21 U/L (12-78); ALBUMIN 3.1 g/dL (3.4-5.0); ALKALINE PHOSPHATASE 70 U/L (46-116); ASPARTATE AMNIOTRANSFERASE,AST 19 U/L (15-37); BILIRUBIN TOTAL 0.2 mg/dL (0.2-1.0); BLOOD UREA NITROGEN,BUN 18 mg/dL (7-18); CALCIUM 9.1 mg/dL (8.5-10.1); CARBON DIOXIDE,CO2 27 mmol/L (21-32); CHLORIDE,CL 102 mmol/L (100-108); CREATININE 0.8 mg/dL (0.6-1.0); EST CRCL DRUG DOSING (CG) 53.35 mL/min; ESTIMATED GFR 79 mL/min (>60); GLUCOSE RANDOM 93 mg/dL (74-106); POTASSIUM,K 4.1 mmol/L (3.6-5.2); PROTEIN TOTAL,TP 6.2 g/dL (6.4-8.2); SODIUM,NA 136 mmol/L (140-148)
[2023-05-23 07:58] LABS: ANION GAP 11.1 mmol/L (5.0-14.0)
[2023-05-23 08:00] LABS: BACTERIA,URINE MANY; EPITHELIAL CELLS,URINE MANY; MUCUS,URINE MANY; RBC,URINE 0-5 (0-5)
[2023-05-23] MEDS ORDERED: Iopamidol 612 MG/ML 100 ML Bottle IV PRN (08:26)
[2023-05-23] MEDS ORDERED: Sodium Chloride 0.9% 50 ML IV ONE (08:26)
== END 2023-05-23 10:23 | disposition home or self-care (01) ==
LOC: JP.ED 05:54
DX: R10.9 Unspecified abdominal pain (principal); E78.00 Pure hypercholesterolemia, unspecified; J44.9 Chronic obstructive pulmonary disease, unspecified; K21.9 Gastro-esophageal reflux disease without esophagitis; Z86.16 Personal history of COVID-19; Z91.048 Other nonmedicinal substance allergy status; Z79.899 Other long term (current) drug therapy
CPT/HCPCS: 36415; 74177; 80053; 81001; 83605; 83690; 85025; 96374; 96375; 99284; J2405; J3010; J3490; J7030; Q9967

== ENCOUNTER 2023-06-26 19:52 | Emergency (ER) | payer MEDICARE ==
[2023-06-26] MEDS ORDERED: Ondansetron 4 MG Tab.DIS PO ONE (22:06)
[2023-06-26 22:25] LABS: BASOPHILS ABSOLUTE AUTO 0.07 K/uL (0.00-0.10); BASOPHILS PERCENT AUTO 0.9 % (0.1-1.3); EOSINOPHILS ABSOLUTE AUTO 0.12 K/uL (0.00-0.40); EOSINOPHILS PERCENT AUTO 1.6 % (0.0-5.4); HEMATOCRIT 35.9 % (34.3-46.0); HEMOGLOBIN 11.8 g/dL (11.2-15.5); IMMATURE GRAN ABSOLUTE AUTO 0.04 K/uL (0.00-0.23); IMMATURE GRAN PERCENT AUTO 0.5 % (0.0-0.7); LYMPHOCYTES ABSOLUTE AUTO 1.75 K/uL (0.8-3.3); LYMPHOCYTES PERCENT AUTO 23.1 % (11.4-47.7); MEAN CORPUSCULAR HEMOGLOBIN 25.5 pg (31.6-35.5); MEAN CORPUSCULAR HGB CONC 32.9 g/dL (31.6-35.5); MEAN CORPUSCULAR VOLUME 77.7 fL (81.4-99.0); MONOCYTES ABSOLUTE AUTO 0.63 K/uL (0.20-0.90); MONOCYTES PERCENT AUTO 8.3 % (3.3-12.6); NEUTROPHILS ABSOLUTE AUTO 4.95 K/uL (1.0-7.6); NEUTROPHILS PERCENT AUTO 65.6 % (40.0-78.1); PLATELET COUNT,PLT 327 K/uL (130-375); RED BLOOD CELL COUNT 4.62 M/uL (3.77-5.24); WHITE BLOOD CELL COUNT,WBC 7.6 K/uL (3.2-11.0)
[2023-06-26] MEDS ORDERED: Sodium Chloride 0.9% 10 ML Syringe FLUSH PRN (22:32)
[2023-06-26 22:39] LABS: CALCIUM 9.8 mg/dL (8.5-10.1); CREATININE 0.7 mg/dL (0.6-1.0); EST CRCL DRUG DOSING (CG) 60.98 mL/min; POTASSIUM,K 3.5 mmol/L (3.6-5.2)
[2023-06-26 22:44] LABS: ANION GAP 18.5 mmol/L (5.0-14.0)
[2023-06-26] MEDS ORDERED: Sodium Chloride 0.9% 1,000 ML IV SCH ×2 (22:45→23:30)
[2023-06-26 22:48] LABS: LACTIC ACID 1.3 mmol/L (0.4-2.0)
[2023-06-26] MEDS ORDERED: Potassium Chloride 10 MEQ Cap.ER PO ONE (22:48)
[2023-06-26] MEDS ORDERED: Prochlorperazine 10 MG/2 ML SDV IVPUSH ONE (23:21)
[2023-06-27] MEDS ORDERED: hydrOXYzine HCL 100 MG/2 ML SDV IM ONE (00:22)
[2023-06-27] MEDS ORDERED: Sodium Chloride 0.9% 10 ML Syringe FLUSH ONE (00:32)
[2023-06-27 00:38] VITALS: PULSE 65
[2023-06-27] MEDS ORDERED: Sodium Chloride 0.9% 50 ML IV SCH (00:45)
[2023-06-27] MEDS ORDERED: Iopamidol 612 MG/ML 100 ML Bottle IV SCH (00:45)
[2023-06-27 01:48] LABS: APPEARANCE,URINE CLEAR (CLEAR); BILIRUBIN,URINE NEGATIVE (NEGATIVE); GLUCOSE,URINE NEGATIVE (NEGATIVE); KETONES,URINE 40 mg/dL (NEGATIVE); LEUKOCYTE ESTERASE,URINE NEGATIVE (NEGATIVE); NITRITE,URINE NEGATIVE (NEGATIVE); OCCULT BLOOD,URINE TRACE-INTACT (NEGATIVE); PROTEIN,URINE NEGATIVE (NEGATIVE); UROBILINOGEN,URINE 0.2 EU/dL (0.2-1.0)
[2023-06-27 01:53] LABS: COLOR,URINE OTHER (YELLOW)
[2023-06-27 01:57] LABS: AMORPHOUS SEDIMENT,URINE NOT SEEN; BACTERIA,URINE RARE; EPITHELIAL CELLS,URINE RARE; MUCUS,URINE RARE; RBC,URINE 0-5 (0-5); WBC,URINE 0-5 (0-5)
[2023-06-27 02:09] VITALS: BP 184/94
== END 2023-06-27 02:47 | disposition home or self-care (01) ==
LOC: JP.ED 19:52
DX: K58.9 Irritable bowel syndrome, unspecified (principal); R11.2 Nausea with vomiting, unspecified; E78.00 Pure hypercholesterolemia, unspecified; K21.9 Gastro-esophageal reflux disease without esophagitis; Z91.048 Other nonmedicinal substance allergy status; Z88.8 Allergy status to other drugs, medicaments and biological substances; Z79.899 Other long term (current) drug therapy; Z86.16 Personal history of COVID-19
CPT/HCPCS: 36415; 74177; 80048; 81001; 83605; 85025; 96361; 96372; 96374; 99284; A9270; J0780; J3410; J3490; J7030; Q0162; Q9967; U0002

== ENCOUNTER 2024-04-27 00:39 | Emergency (ER) | payer MEDICARE ==
[2024-04-27] MEDS: droPERidol 5 MG/2 ML SDV IVPUSH ONE (01:04)
[2024-04-27 01:06] LABS: BASOPHILS ABSOLUTE AUTO 0.08 K/uL (0.00-0.10); BASOPHILS PERCENT AUTO 0.6 % (0.1-1.3); EOSINOPHILS ABSOLUTE AUTO 0.14 K/uL (0.00-0.40); HEMATOCRIT 37.6 % (34.3-46.0); HEMOGLOBIN 13.4 g/dL (11.2-15.5); IMMATURE GRAN ABSOLUTE AUTO 0.09 K/uL (0.00-0.23); IMMATURE GRAN PERCENT AUTO 0.7 % (0.0-0.7); LYMPHOCYTES ABSOLUTE AUTO 1.94 K/uL (0.8-3.3); LYMPHOCYTES PERCENT AUTO 14.3 % (11.4-47.7); MEAN CORPUSCULAR HEMOGLOBIN 34.2 pg (31.6-35.5); MEAN CORPUSCULAR HGB CONC 35.6 g/dL (31.6-35.5); MEAN CORPUSCULAR VOLUME 95.9 fL (81.4-99.0); MONOCYTES ABSOLUTE AUTO 0.74 K/uL (0.20-0.90); MONOCYTES PERCENT AUTO 5.5 % (3.3-12.6); NEUTROPHILS ABSOLUTE AUTO 10.58 K/uL (1.0-7.6); NEUTROPHILS PERCENT AUTO 77.9 % (40.0-78.1); PLATELET COUNT,PLT 229 K/uL (130-375); RED BLOOD CELL COUNT 3.92 M/uL (3.77-5.24); WHITE BLOOD CELL COUNT,WBC 13.6 K/uL (3.2-11.0)
[2024-04-27] MEDS: Sodium Chloride 0.9% 1,000 ML IV SCH (01:06)
[2024-04-27 01:26] LABS: ALANINE AMINOTRANSFERASE,ALT 25 U/L (12-78); ALBUMIN 3.6 g/dL (3.4-5.0); ALKALINE PHOSPHATASE 69 U/L (46-116); ASPARTATE AMNIOTRANSFERASE,AST 19 U/L (15-37); BLOOD UREA NITROGEN,BUN 16 mg/dL (7-18); CALCIUM 9.4 mg/dL (8.5-10.1); CARBON DIOXIDE,CO2 22 mmol/L (21-32); CHLORIDE,CL 101 mmol/L (100-108); CREATININE 0.8 mg/dL (0.6-1.0); EST CRCL DRUG DOSING (CG) 50.27 mL/min; ESTIMATED GFR 78 mL/min (>60); GLUCOSE RANDOM 170 mg/dL (74-106); POTASSIUM,K 3.4 mmol/L (3.6-5.2); PROTEIN TOTAL,TP 7.1 g/dL (6.4-8.2); SODIUM,NA 139 mmol/L (140-148)
[2024-04-27 01:32] LABS: ANION GAP 19.4 mmol/L (5.0-14.0)
[2024-04-27] MEDS ORDERED: LORazepam 2 MG/ML SDV IVPUSH ONE (02:27)
[2024-04-27] MEDS: LORazepam 1 MG Tab PO ONE (02:35)
[2024-04-27 05:37] VITALS: BP 149/93; PULSE 76
== END 2024-04-27 07:30 | disposition home or self-care (01) ==
LOC: JP.ED 00:39
DX: K58.9 Irritable bowel syndrome, unspecified (principal); E78.00 Pure hypercholesterolemia, unspecified; Z91.018 Allergy to other foods; Z88.8 Allergy status to other drugs, medicaments and biological substances; Z79.899 Other long term (current) drug therapy; Z86.16 Personal history of COVID-19; Z90.710 Acquired absence of both cervix and uterus
CPT/HCPCS: 36415; 74176; 80053; 83690; 85025; 96361; 96374; 99285; A9270; J1790; J7030

== ENCOUNTER 2024-07-16 09:51 | Day surgery (SDC) | payer MEDICARE ==
[~2024-07-16 09:51] MED LIST: Dexamethasone 4 MG/ML SDV ONE; Glycopyrrolate 0.2 MG/ML 5 ML MDV ONE; Neostigmine Methylsulfate 10 MG/10 ML MDV ONE; Ondansetron 4 MG/2 ML SDV ONE; Propofol 200 MG/20 ML SDV ONE; Rocuronium 50 MG/5 ML Vial ONE; fentaNYL 100 MCG/2 ML SDV ONE; fentaNYL 250 MCG/5 ML SDV ONE
[2024-07-16] MEDS: Sodium Chloride 0.9% 1,000 ML IV SCH (10:17)
[2024-07-16 10:35] LABS: BASOPHILS ABSOLUTE AUTO 0.08 K/uL (0.00-0.10); BASOPHILS PERCENT AUTO 1.2 % (0.1-1.3); EOSINOPHILS ABSOLUTE AUTO 0.33 K/uL (0.00-0.40); HEMATOCRIT 36.4 % (34.3-46.0); HEMOGLOBIN 12.5 g/dL (11.2-15.5); IMMATURE GRAN PERCENT AUTO 0.3 % (0.0-0.7); LYMPHOCYTES ABSOLUTE AUTO 2.68 K/uL (0.8-3.3); LYMPHOCYTES PERCENT AUTO 40.7 % (11.4-47.7); MEAN CORPUSCULAR HEMOGLOBIN 33.6 pg (31.6-35.5); MEAN CORPUSCULAR HGB CONC 34.3 g/dL (31.6-35.5); MEAN CORPUSCULAR VOLUME 97.8 fL (81.4-99.0); MONOCYTES ABSOLUTE AUTO 0.45 K/uL (0.20-0.90); MONOCYTES PERCENT AUTO 6.8 % (3.3-12.6); NEUTROPHILS ABSOLUTE AUTO 3.02 K/uL (1.0-7.6); PLATELET COUNT,PLT 245 K/uL (130-375); RED BLOOD CELL COUNT 3.72 M/uL (3.77-5.24); WHITE BLOOD CELL COUNT,WBC 6.6 K/uL (3.2-11.0)
[2024-07-16 10:37] LABS: IMMATURE GRAN ABSOLUTE AUTO 0.02 K/uL (0.00-0.23)
[2024-07-16 10:45] LABS: ALANINE AMINOTRANSFERASE,ALT 22 U/L (12-78); ALBUMIN 3.7 g/dL (3.4-5.0); ALKALINE PHOSPHATASE 87 U/L (46-116); ANION GAP 12.6 mmol/L (5.0-14.0); ASPARTATE AMNIOTRANSFERASE,AST 18 U/L (15-37); BILIRUBIN TOTAL 0.5 mg/dL (0.2-1.0); BLOOD UREA NITROGEN,BUN 17 mg/dL (7-18); CALCIUM 9.2 mg/dL (8.5-10.1); CARBON DIOXIDE,CO2 23 mmol/L (21-32); CHLORIDE,CL 104 mmol/L (100-108); CREATININE 0.9 mg/dL (0.6-1.0); EST CRCL DRUG DOSING (CG) 45.71 mL/min; ESTIMATED GFR 68 mL/min (>60); GLUCOSE RANDOM 104 mg/dL (74-106); POTASSIUM,K 3.8 mmol/L (3.6-5.2); PROTEIN TOTAL,TP 7.3 g/dL (6.4-8.2); SODIUM,NA 140 mmol/L (140-148)
[2024-07-16] MEDS ORDERED: Succinylcholine 200 MG/10 ML MDV ONE (11:08)
[2024-07-16] MEDS: Ropivacaine 35 ML, dexAMETHasone 8 MG, EPINEPHrine 0.4 MG, Sodium Chloride 0.9% 42.6 ML NERVRT SCH (11:10)
[2024-07-16] MEDS ORDERED: Indocyanine Green 25 MG SDV ONE (11:34)
[2024-07-16] MEDS ORDERED: Sodium Chloride 0.9% 10 ML ONE (11:35)
[2024-07-16] MEDS: Indocyanine Green 25 MG SDV IV ONE (11:36)
[2024-07-16] MEDS: ceFAZolin 2 GM in Premix Bag 1 BAG IV ONE (11:37)
[2024-07-16] MEDS: metroNIDAZOLE/Normal Saline 500 MG in Premix Bag 1 BAG IV ONE (11:38)
[2024-07-16] MEDS: Lidocaine 1% with EPINEPHrine 1:100,000 50 ML MDV ONE (13:47)
[2024-07-16] MEDS: Bupivacaine 0.5% 50 ML MDV ONE (13:47)
[2024-07-16 13:49] VITALS: BP 140/89; PULSE 68
[2024-07-16] MEDS: Acetaminophen/HYDROcodone 325-5 MG Tab PO ONE (14:03)
== END 2024-07-16 15:15 | disposition home or self-care (01) ==
LOC: JP.SDS 09:51
PROVIDERS: ATTEND Surgery
DX: K81.1 Chronic cholecystitis (principal); K21.9 Gastro-esophageal reflux disease without esophagitis; I10 Essential (primary) hypertension; E78.00 Pure hypercholesterolemia, unspecified; G47.33 Obstructive sleep apnea (adult) (pediatric); E66.9 Obesity, unspecified; J44.9 Chronic obstructive pulmonary disease, unspecified; Z68.34 Body mass index [BMI] 34.0-34.9, adult
CPT/HCPCS: 00790; 36415; 47563; 80053; 84484; 85025; 88304; A9270; J0171; J0330; J0665; J0690; J1100; J1596; J1836; J2405; J2704; J2710; J2795; J3010; J3490; J7030

== ENCOUNTER 2025-06-01 09:33 | Day surgery (SDC) | payer MEDICARE ==
[2025-06-01] MEDS: Lactated Ringers 1,000 ML IV SCH (10:12)
[2025-06-01] MEDS ORDERED: Propofol 200 MG/20 ML SDV ONE ×2 (10:40→11:34)
[2025-06-01] MEDS ORDERED: fentaNYL 100 MCG/2 ML SDV ONE (10:40)
[2025-06-01] MEDS ORDERED: Midazolam 1 MG/ML 2 ML SDV ONE (10:40)
[2025-06-01 13:16] VITALS: BP 126/81; PULSE 89
== END 2025-06-01 13:35 | disposition home or self-care (01) ==
LOC: JP.SDS 09:33
PROVIDERS: ATTEND Surgery
DX: K29.50 Unspecified chronic gastritis without bleeding (principal); K22.89 Other specified disease of esophagus; K64.4 Residual hemorrhoidal skin tags; I10 Essential (primary) hypertension; K57.30 Diverticulosis of large intestine without perforation or abscess without bleeding; K92.1 Melena
CPT/HCPCS: 00813; 43239; 45378; 88305; J2250; J2704; J3010; J7120